=== PATIENT | male | born 1995 | race Caucasian/White ===

== ENCOUNTER 2019-10-22 12:53 | Emergency (ER) | payer OTHER, SELFPAY ==
[~2019-10-22] VITALS: Ht 175.3 cm; Wt 68.0 kg
[2019-10-22 12:54] VITALS: BP 107/67; Ht 175.3 cm; Wt 68.0 kg
== END 2019-10-22 14:21 | disposition home or self-care (01) ==
LOC: ED 12:53
DX: R06.02 Shortness of breath (principal); Z20.828 Contact with and (suspected) exposure to other viral communicable diseases
CPT/HCPCS: Q0092; U0003-CS